=== PATIENT | male | born 1965 | race Caucasian/White ===

== ENCOUNTER 2023-06-11 13:27 | Inpatient (IN) | payer OTHER ==
[~2023-06-11] VITALS: Ht 180.3 cm; Wt 70.8 kg
[2023-06-11] MEDS ORDERED: ZOLPIDEM TARTRATE 10 MG TABLET PO PRN (15:00)
[2023-06-11] MEDS ORDERED: LORAZEPAM 1 MG TABLET FOR AGITATION PO PRN (15:00)
[2023-06-11] MEDS ORDERED: MAG HYDROX/AL HYDROX/SIMETH 30 ML UDC PO PRN (15:00)
[2023-06-11] MEDS ORDERED: IBUPROFEN 200 MG TABLET PO PRN (15:00)
[2023-06-11] MEDS ORDERED: ACETAMINOPHEN ES 500 MG TABLET PO PRN (15:00)
[2023-06-11] MEDS ORDERED: MAGNESIUM HYDROXIDE 30 ML UDC PO PRN (15:00)
[2023-06-11 16:00] VITALS: BP 106/81; TEMP 97.6; O2SAT 96
[2023-06-11 20:00] VITALS: BP 110/90; TEMP 97.7; O2SAT 98
[2023-06-11] MEDS: QUETIAPINE FUMARATE 100 MG TABLET PO SCH (21:34)
[2023-06-12 08:00] VITALS: BP 116/79; TEMP 97.7; O2SAT 99
[2023-06-12] MEDS ORDERED: MENTHOL/CETYLPYRD (CEPACOL) 1 LOZ LOZENGE PO PRN (13:30)
[2023-06-12 20:00] VITALS: BP 124/83; TEMP 98.8; O2SAT 98
[2023-06-12 20:14] VITALS: BP 124/83; TEMP 98.8; O2SAT 98
[2023-06-13 07:00] VITALS: BP 164/77; TEMP 98.1; O2SAT 98
[2023-06-13 16:00] VITALS: BP 159/138; TEMP 98.4; O2SAT 99
[2023-06-13 20:00] VITALS: BP 118/83; TEMP 98.1; O2SAT 100
[2023-06-13] MEDS: QUETIAPINE FUMARATE 100 MG TABLET PO SCH (21:16)
[2023-06-14 08:00] VITALS: BP 99/74; TEMP 98.2; O2SAT 98
[2023-06-14 16:00] VITALS: BP 119/87; TEMP 98.3; O2SAT 100
[2023-06-14 20:00] VITALS: BP 106/84; TEMP 97.9; O2SAT 97
[2023-06-15 16:00] VITALS: BP 106/84; TEMP 98.4; O2SAT 99
[2023-06-15 20:00] VITALS: BP 134/90; TEMP 97.7; O2SAT 99
[2023-06-15] MEDS: QUETIAPINE FUMARATE 25 MG TABLET PO SCH (21:38)
[2023-06-16 08:00] VITALS: BP 109/82; TEMP 98.1; O2SAT 97
[2023-06-17 08:00] VITALS: BP 118/89; TEMP 98.1; O2SAT 98
[2023-06-17 16:09] VITALS: BP_SYST 122; BP_SYST 138; BP_DIAS 64; TEMP 98.6; O2SAT 96
[2023-06-17 20:00] VITALS: BP 126/88; TEMP 97.9; O2SAT 98
[2023-06-18 08:00] VITALS: BP 120/80; TEMP 97.5; O2SAT 100
[2023-06-18 20:00] VITALS: BP 126/100; TEMP 97.8; O2SAT 98
[2023-06-19 08:00] VITALS: BP 128/98; TEMP 98; O2SAT 99
[2023-06-19 20:30] VITALS: BP 136/89; TEMP 97.8
[2023-06-20 08:00] VITALS: BP 114/95; TEMP 98.6; O2SAT 99
[2023-06-20 20:00] VITALS: BP 125/95; TEMP 98.1; O2SAT 97
[2023-06-21 08:00] VITALS: BP 125/83; TEMP 98.4; O2SAT 99
[2023-06-22 20:00] VITALS: BP 136/95; TEMP 98.2; O2SAT 98
[2023-06-23 08:00] VITALS: BP 112/80; TEMP 98.1; O2SAT 99
[2023-06-23 16:00] VITALS: BP 118/62; TEMP 98.8; O2SAT 98
[2023-06-23 20:24] VITALS: BP 112/91; TEMP 98.1; O2SAT 98
[2023-06-23 20:30] VITALS: BP 112/91; TEMP 98.1; O2SAT 98
[2023-06-24] MEDS ORDERED: ZOLPIDEM TARTRATE 10 MG TABLET PO PRN (13:00)
[2023-06-24 16:00] VITALS: BP 123/96; TEMP 97.6; O2SAT 98
[2023-06-24 20:00] VITALS: BP 137/99; TEMP 97.9; O2SAT 98
[2023-06-25 08:00] VITALS: BP 132/98; TEMP 98.1; O2SAT 100
[2023-06-25] MEDS ORDERED: LORAZEPAM 1 MG TABLET FOR AGITATION PO PRN (13:00)
[2023-06-25 20:00] VITALS: BP 115/89; TEMP 98.1; O2SAT 98
[2023-06-26] MEDS: INVEST MED CVL-231-2002 PO SCH (10:07)
[2023-06-26 20:00] VITALS: BP 125/92; TEMP 98.4; O2SAT 100
[2023-06-27 08:00] VITALS: BP 129/61; TEMP 98.1; O2SAT 95
[2023-06-27 20:00] VITALS: BP_SYST 134; BP_SYST 137; BP_DIAS 92; TEMP 98.2; TEMP 98.6; O2SAT 100; O2SAT 99
[2023-06-28 08:00] VITALS: BP 121/84; TEMP 98.2; O2SAT 100
[2023-06-28 16:00] VITALS: BP 137/94; TEMP 98.1; O2SAT 100
[2023-06-28 20:00] VITALS: BP 132/96; TEMP 98.1; O2SAT 98
[2023-06-29 08:00] VITALS: BP 104/83; TEMP 97.9; O2SAT 98
[2023-06-30 08:00] VITALS: BP 136/86; TEMP 97.8; O2SAT 99
[2023-06-30 20:35] VITALS: BP 133/90; TEMP 98.2; O2SAT 98
[2023-07-01 08:00] VITALS: BP 109/76; TEMP 98.2; O2SAT 97
[2023-07-01 16:00] VITALS: BP 120/93; TEMP 97.5; O2SAT 100
[2023-07-01 20:00] VITALS: BP 128/77; TEMP 97.9; O2SAT 100
[2023-07-01] MEDS ORDERED: ZOLPIDEM TARTRATE 10 MG TABLET ONE (22:44)
[2023-07-01] MEDS: ZOLPIDEM TARTRATE 10 MG TABLET PO PRN (22:46)
[2023-07-02 07:00] VITALS: BP 108/75; TEMP 98.4; O2SAT 98
[2023-07-02] MEDS ORDERED: LORAZEPAM 1 MG TABLET FOR AGITATION PO PRN (13:00)
[2023-07-02 20:00] VITALS: BP 128/92; TEMP 98.4; O2SAT 100
[2023-07-03 09:00] VITALS: BP 105/79; TEMP 97.9; O2SAT 98
[2023-07-03 20:00] VITALS: BP 112/92; TEMP 97.8; O2SAT 100
[2023-07-04 08:00] VITALS: BP 95/63; TEMP 98.1; O2SAT 100
[2023-07-04 16:00] VITALS: BP 110/97; TEMP 97.9; O2SAT 100
[2023-07-05 08:00] VITALS: BP 114/89; TEMP 98.1; O2SAT 100
[2023-07-05 20:00] VITALS: BP 119/99; TEMP 97.9; O2SAT 100
[2023-07-06 08:00] VITALS: BP 127/88; TEMP 98.2; O2SAT 96
[2023-07-06 20:00] VITALS: BP_SYST 108; BP_SYST 130; BP_DIAS 63; BP_DIAS 94; TEMP 98.4; O2SAT 100; O2SAT 99
[2023-07-07 16:00] VITALS: BP 129/85; TEMP 98; O2SAT 99
[2023-07-07 20:00] VITALS: BP 142/106; TEMP 97.9; O2SAT 100
[2023-07-08 08:00] VITALS: BP 108/89; TEMP 97.5; O2SAT 99
[2023-07-09] MEDS ORDERED: LORAZEPAM 1 MG TABLET FOR AGITATION PO PRN (13:00)
[2023-07-09] MEDS ORDERED: ZOLPIDEM TARTRATE 10 MG TABLET PO PRN (13:00)
[2023-07-09 20:00] VITALS: BP 128/95; TEMP 97.7; O2SAT 99
[2023-07-10 20:00] VITALS: BP 123/95; TEMP 98.2; O2SAT 99
[2023-07-12 20:00] VITALS: BP 121/88; TEMP 98; O2SAT 94; O2SAT 96
[2023-07-14 16:00] VITALS: BP 132/105; TEMP 97.8; O2SAT 98
[2023-07-14 20:00] VITALS: BP 129/99; TEMP 98; O2SAT 97
[2023-07-15 08:00] VITALS: BP 120/83; TEMP 97.4; O2SAT 98
[2023-07-15 16:00] VITALS: BP 127/97; TEMP 98.2; O2SAT 100
[2023-07-15 20:00] VITALS: BP 146/86; TEMP 97.7; O2SAT 100
[2023-07-16] MEDS ORDERED: LORAZEPAM 1 MG TABLET FOR AGITATION PO PRN (13:00)
[2023-07-16] MEDS ORDERED: ZOLPIDEM TARTRATE 10 MG TABLET PO PRN (13:00)
[2023-07-23] MEDS ORDERED: LORAZEPAM 1 MG TABLET FOR AGITATION PO PRN (13:00)
[2023-07-23] MEDS ORDERED: ZOLPIDEM TARTRATE 10 MG TABLET PO PRN (13:00)
[2023-07-30] MEDS ORDERED: ZOLPIDEM TARTRATE 10 MG TABLET PO PRN (13:00)
[2023-07-30] MEDS ORDERED: LORAZEPAM 1 MG TABLET FOR AGITATION PO PRN (13:00)
[2023-08-07] MEDS ORDERED: ZOLPIDEM TARTRATE 10 MG TABLET PO PRN (13:00)
[2023-08-07] MEDS ORDERED: LORAZEPAM 1 MG TABLET FOR AGITATION PO PRN (15:00)
== END 2023-07-17 18:56 | disposition left against medical advice (07) | DRG 951 ==
LOC: MED 13:52
PROVIDERS: ADMIT Psychiatry & Neurology Psychiatry; ATTEND Psychiatry & Neurology Psychiatry
DX: Z00.6 Encounter for examination for normal comparison and control in clinical research program (principal); F20.0 Paranoid schizophrenia; Z79.899 Other long term (current) drug therapy; Z82.5 Family history of asthma and other chronic lower respiratory diseases; Z91.148 Patient's other noncompliance with medication regimen for other reason; F41.9 Anxiety disorder, unspecified
CPT/HCPCS: G0378

== ENCOUNTER 2024-12-14 11:35 | Inpatient (IN) | payer OTHER ==
[~2024-12-14] VITALS: Ht 182.9 cm; Wt 73.0 kg
[2024-12-14] MEDS ORDERED: MAG HYDROX/AL HYDROX/SIMETH 30 ML UDC PO PRN (17:00)
[2024-12-14] MEDS ORDERED: ONDANSETRON 4 MG TAB.RAPDIS PO PRN (17:00)
[2024-12-14] MEDS ORDERED: ACETAMINOPHEN ES 500 MG TABLET PO PRN (17:00)
[2024-12-14] MEDS ORDERED: IBUPROFEN 200 MG TABLET PO PRN (17:00)
[2024-12-14] MEDS ORDERED: MAGNESIUM HYDROXIDE 30 ML UDC PO PRN (17:00)
[2024-12-14 20:00] VITALS: BP 132/99; TEMP 97.7; O2SAT 98
[2024-12-14] MEDS ORDERED: ZOLPIDEM TARTRATE 10 MG TABLET PO PRN (22:00)
[2024-12-14] MEDS ORDERED: LORAZEPAM 1 MG TABLET FOR AGITATION PO PRN (22:00)
[2024-12-14] MEDS: SEROQUEL 400 MG PO SCH (22:10)
[2024-12-14 22:23] VITALS: BP 132/99; TEMP 97.7; O2SAT 98
[2024-12-15 20:00] VITALS: BP 132/100; TEMP 97.8; O2SAT 98
[2024-12-16] MEDS: SEROQUEL 200 MG PO SCH (21:33)
[2024-12-17 08:00] VITALS: BP 121/85; TEMP 98.3; O2SAT 99
[2024-12-17 16:00] VITALS: BP 141/90; TEMP 98.1; O2SAT 96
[2024-12-17 20:00] VITALS: BP 143/96; TEMP 97.5; O2SAT 97
[2024-12-18 08:00] VITALS: BP 127/95; TEMP 97.5; O2SAT 98
[2024-12-18 20:00] VITALS: BP 135/108; TEMP 97.7; O2SAT 97
[2024-12-19 07:00] VITALS: BP 124/90; TEMP 97.5; O2SAT 97
[2024-12-19 08:00] VITALS: BP 105/84; TEMP 97.5; O2SAT 97
[2024-12-19 22:00] VITALS: BP 138/92; TEMP 97.8; O2SAT 98
[2024-12-20 08:00] VITALS: BP 130/79; TEMP 98.1; O2SAT 98
[2024-12-20 16:00] VITALS: BP 140/95; TEMP 98; O2SAT 98
[2024-12-20 20:00] VITALS: BP 141/96; TEMP 97.9; O2SAT 97
[2024-12-21 09:00] VITALS: BP 133/99; TEMP 97.9; O2SAT 98
[2024-12-21 22:10] VITALS: BP 128/99; TEMP 98.1; O2SAT 99
[2024-12-22 08:10] VITALS: BP 132/87; TEMP 98; O2SAT 97
[2024-12-22 22:00] VITALS: BP 140/98; TEMP 97.9; O2SAT 99
[2024-12-23 08:10] VITALS: BP 135/82; TEMP 98.2; O2SAT 97
[2024-12-23 18:00] VITALS: BP 135/93; TEMP 98; O2SAT 98
[2024-12-23 21:00] VITALS: BP 133/95; TEMP 98.1; O2SAT 97
[2024-12-24 08:00] VITALS: BP 125/93; TEMP 97.5; O2SAT 100
[2024-12-24 20:10] VITALS: BP 126/93; TEMP 97.7; O2SAT 100
[2024-12-25 08:00] VITALS: BP 134/97; TEMP 96.8; O2SAT 98
[2024-12-25 17:50] VITALS: BP 128/94; TEMP 97.3; O2SAT 97
[2024-12-25 19:37] VITALS: BP 135/99; TEMP 98.1; O2SAT 98
[2024-12-26 08:12] VITALS: BP 128/87; TEMP 97.8; O2SAT 97
[2024-12-26] MEDS ORDERED: ZOLPIDEM TARTRATE 10 MG TABLET PO PRN (13:00)
[2024-12-26] MEDS ORDERED: LORAZEPAM 1 MG TABLET FOR AGITATION PO PRN (13:00)
[2024-12-26 22:30] VITALS: BP 141/102; TEMP 98.1; O2SAT 97
[2024-12-27] MEDS: INVEST MED ML-007C-A-211 1 TAB EA BOTTLE AM PO SCH (06:31)
[2024-12-27 09:25] VITALS: BP 131/99; TEMP 97.8; O2SAT 98
[2024-12-27] MEDS: INVEST MED ML-007C-A-211 1TAB EA BOTTLE PM PO SCH (18:31)
[2024-12-27 20:00] VITALS: BP 139/88; TEMP 97.6; O2SAT 99
[2024-12-28] MEDS: INVEST MED ML-007C-A-211 1 TAB EA BOTTLE AM PO SCH (06:30)
[2025-01-02] MEDS ORDERED: ZOLPIDEM TARTRATE 10 MG TABLET PO PRN (13:00)
[2025-01-02] MEDS ORDERED: LORAZEPAM 1 MG TABLET FOR AGITATION PO PRN (13:00)
[2025-01-09] MEDS ORDERED: ZOLPIDEM TARTRATE 10 MG TABLET PO PRN (13:00)
[2025-01-09] MEDS ORDERED: LORAZEPAM 1 MG TABLET FOR AGITATION PO PRN (13:00)
[2025-01-16] MEDS ORDERED: ZOLPIDEM TARTRATE 10 MG TABLET PO PRN (13:00)
[2025-01-16] MEDS ORDERED: LORAZEPAM 1 MG TABLET FOR AGITATION PO PRN (13:00)
[2025-01-23] MEDS ORDERED: LORAZEPAM 1 MG TABLET FOR AGITATION/ANXIETY PO PRN (13:00)
[2025-01-23] MEDS ORDERED: ZOLPIDEM TARTRATE 10 MG TABLET PO PRN (13:00)
== END 2024-12-28 18:00 | disposition home or self-care (01) | DRG 951 ==
LOC: MED 16:16 → MEDSG2 12-19 13:20
PROVIDERS: ADMIT Psychiatry & Neurology Psychiatry; ATTEND Psychiatry & Neurology Psychiatry
DX: Z00.6 Encounter for examination for normal comparison and control in clinical research program (principal); F20.0 Paranoid schizophrenia; Z91.148 Patient's other noncompliance with medication regimen for other reason; Z82.5 Family history of asthma and other chronic lower respiratory diseases; Z79.899 Other long term (current) drug therapy
CPT/HCPCS: G0378